=== PATIENT | female | born 1975 | race Caucasian/White ===

== ENCOUNTER 2018-03-11 08:44 | Day surgery (SDC) | payer BC ==
[~2018-03-11 08:44] MED LIST: LAMO100 PO; LEVOXYL; NORCO
== END 2018-03-11 23:07 | disposition home or self-care (01) ==
LOC: RAD 08:44
PROVIDERS: Radiology Diagnostic Radiology
PROC: B02BYZZ Computerized Tomography (CT Scan) of Spinal Cord using Other Contrast (ICD-10-PCS; principal; 2018-03-11 10:30)
DX: M50.31 Other cervical disc degeneration, high cervical region (principal); M12.88 Other specific arthropathies, not elsewhere classified, other specified site
CPT/HCPCS: 62302; 72126; Q9967

== ENCOUNTER → 2018-10-13 | Outpatient (CLI) | payer BC, SELFPAY | END | disposition home or self-care (01) | LOC: LAB SHORT 10:17 → LAB 10:17 | DX: Z51.81 Encounter for therapeutic drug level monitoring (principal); M54.2 Cervicalgia; Z79.899 Other long term (current) drug therapy | CPT/HCPCS: G0480 ==

== ENCOUNTER 2018-11-27 18:22 | Emergency (ER) | payer BC ==
[~2018-11-27] VITALS: Ht 152.4 cm; Wt 68.0 kg
[2018-11-27] MEDS ORDERED: AMPDEX30CR PO (18:40)
[2018-11-27] MEDS ORDERED: LEVSOD88 PO (18:40)
[2018-11-27] MEDS ORDERED: Norco 5-325 Ta1 EACH PO (19:55)
== END 2018-11-27 20:09 | disposition home or self-care (01) ==
LOC: ER 18:22
DX: M25.521 Pain in right elbow (principal); Z88.8 Allergy status to other drugs, medicaments and biological substances; Z79.899 Other long term (current) drug therapy
CPT/HCPCS: 29105; 73080; 73090; 99283-25

== ENCOUNTER 2018-12-16 12:00 | Day surgery (SDC) | payer BC, OTHER ==
[~2018-12-16] VITALS: Ht 152.4 cm; Wt 72.0 kg
[~2018-12-16 12:00] MED LIST changes: +AMPDEX30CR PO; +LEVSOD88 PO; +Norco 5-325 Ta1 EACH PO
[2018-12-16] MEDS ORDERED: Synthroid88 MCG PO (12:14)
[2018-12-16] MEDS ORDERED: DAILY MULTIPLE1 EACH PO (12:14)
[2018-12-16] MEDS ORDERED: CRINONE1.125 GM TD (12:16)
[2018-12-16] MEDS ORDERED: CYCL10 PO (12:17)
[2018-12-16] MEDS ORDERED: Percocet 7.5-31 EACH PO (12:17)
[2018-12-16] MEDS ORDERED: ALBU90OI INH (12:18)
[2018-12-16] MEDS ORDERED: Advair Hfa 230-12 GM INH (12:18)
[2018-12-16] MEDS ORDERED: NASAL DECONGEST30 MG PO (12:19)
[2018-12-16 12:41] LABS: Hematocrit 39.9 % (33.0-51.0); Hemoglobin 13.8 g/dL (11.5-16.0); Mean Corpuscular HGB 33.6 pg (26.0-34.0); Mean Corpuscular HGB Conc 34.6 g/dL (31.5-36.5); Mean Corpuscular Volume 97 fL (80-100); Mean Platelet Volume 10.1 fL (9.1-12.4); Platelet Count 278 K/mm3 (150-400); RDW Coefficient Variation 11.9 % (11.7-14.2); RDW Standard Deviation 42.4 fL (35.1-46.3); Red Blood Cell Count 4.11 M/mm3 (3.80-5.20); White Blood Cell Count 7.29 K/mm3 (4.00-11.30)
[2018-12-16 13:04] LABS: International Normalized Ratio 0.97; Prothrombin Time Results 10.3 Sec (9.7-11.5)
[2018-12-16 13:05] LABS: Alanine Aminotransfer (ALT/SGP 22 U/L (12-78); Albumin, Blood 3.6 g/dL (3.4-5.0); Albumin/Globulin Ratio 1.1 (0.8-1.8); Alk Phos 126 U/L (50-136); Anion Gap 5 mmol/L (6-16); Aspartate Aminotrans (AST/SGOT 22 U/L (12-37); Bilirubin, Total 0.7 mg/dL (0.1-1.0); Blood Urea Nitrogen 7 mg/dL (8-24); Bun/Creatinine Ratio 11.8 (12.0-20.0); CO2, Blood 27 mmol/L (21-32); Calcium, Blood 8.2 mg/dL (8.5-10.1); Chloride, Blood 108 mmol/L (98-108); Creatinine, Blood 0.59 mg/dL (0.40-1.00); Globulin, Blood 3.3 g/dL (2.2-4.0); Glomerular Filtration Rate >60 (60-); Glucose, Blood 105 mg/dL (70-99); Potassium, Blood 3.4 mmol/L (3.5-5.5); Sodium, Blood 140 mmol/L (136-145); Total Protein, Blood 6.9 g/dL (6.4-8.2)
--- NOTE | 2018-12-16 15:52 | NUR ---
PT SCRIPT ONLY AVAILABLE [facility]RU [facility], SENT WRITTED SCRIPT W PT ON DC. IV DC'T TIP INTACT, PT DRESSED, AMB WELL, DC'D AMBULATION W THIS RN TO PT ENTRANCE WTIH SIGNIFICANT OTHER DRIVING PT HOME. ESR AND [facility] LABS DRAWN BEFORE DC, PENDING
== END 2018-12-16 15:45 | disposition home or self-care (01) ==
LOC: MHTC 12:00
PROVIDERS: Radiology Diagnostic Radiology
PROC: 037Y3ZZ Dilation of Upper Artery, Percutaneous Approach (ICD-10-PCS; principal; 2018-12-16)
PROC: B31H1ZZ Fluoroscopy of Right Upper Extremity Arteries using Low Osmolar Contrast (ICD-10-PCS; principal; 2018-12-16)
DX: I99.8 Other disorder of circulatory system (principal); T14.90XA Injury, unspecified, initial encounter; W10.9XXA Fall (on) (from) unspecified stairs and steps, initial encounter; E07.9 Disorder of thyroid, unspecified; Z88.6 Allergy status to analgesic agent; Z79.899 Other long term (current) drug therapy
CPT/HCPCS: 36216; 75710; 75774; 80053; 85027; 85610; 85651; 86038; 99152; 99153; C1760; C1769; C1894; J1644; J2250; J3010; J7030; Q9967

== ENCOUNTER 2021-12-09 09:04 | Day surgery (SDC) | payer BC ==
[~2021-12-09] VITALS: Ht 154.9 cm; Wt 75.1 kg
[~2021-12-09 09:04] MED LIST changes: +ALBU90OI INH; +Advair Hfa 230-12 GM INH; +CRINONE1.125 GM TD; +CYCL10 PO; +DAILY MULTIPLE1 EACH PO; +NASAL DECONGEST30 MG PO; +Percocet 7.5-31 EACH PO; +Synthroid88 MCG PO
[2021-12-09] MEDS ORDERED: Nifedipine5 GM PO (09:24)
--- NOTE | 2021-12-09 09:50 | NUR ---
Ambulatory in Day Surgery. History, Chart, Medications and Allergies reviewed before start of procedure.Lungs clear T/O to Auscultation. Patient confirms NPO status and agrees with scheduled surgery. Pre-Op teaching done. Pt verbalizes understanding. Patient States Post-Procedure ride home has been arranged.
--- NOTE | 2021-12-09 15:03 | NUR ---
PATIENT TO FLOOR FROM PACU AT 1345. AWAKE, ALERT AND ORIENTED X 4. C/O 08/04 PAIN, ABDOMEN. DILAUDID 0.2MG IV GIVEN, PT. DENIES RELIEF. SCHEDULED TYLENOL GIVEN AND PT. AT THIS TIME CONT. TO C/O ABDOMINAL PAIN 07/05. ROXICODONE GIVEN PER ORDERS AND REGLAN IV TO PREVENT NAUSEA. MEDS TAKEN WITH WATER AND PT. DENIES NAUSEA. VSS, SKIN W/D. INSTRUCTED TO USE CALL LIGHT FOR ANY NEEDS, COMPLAINTS, CONCERNS. CALL LIGHT IN REACH. PATIENT IS ON ROOM AIR. STERI STRIPS ON ABDOMEN CLEAN, DRY AND INTACT. JAVIER PAD CLEAN AND DRY.
--- NOTE | 2021-12-09 18:07 | NUR ---
HOPPER CATHETER DC'D AT THIS TIME. CLEAR YELLOW URINE NOTED. PT TOLERATED WELL. WILL MONITOR FOR RETENTION WITH BS.
--- NOTE | 2021-12-09 18:20 | NUR ---
ASSUMED CARE OF PATIENT AT 1730. MEDICATED FOR PAIN AND NAUSEA. HOPPER CATHETER DC'D. PATIENT TOLERATED WELL. TOLERATING WATER.
--- NOTE | 2021-12-10 06:39 | NUR ---
SHIFT SUMMARY: PT IN BED AAOX4.VS WNL WITH NO SIGNS OF DISTRESS NOTED. LAP SITES ON ABOMEN C/D/I WITH NO DRAINAGE NOTED. IV SALINE LOCK IN PLACE PATENT. PT COMPLAINED ON PAIN MEDICATED PER EMAR. TOLERATED WELL. UP TO BATHROOM WITH WALKER SEVERAL TIMES. WILL CONTINUE TO MONITOR AND MAINTAIN ALL PRECAUTIONS.
--- NOTE | 2021-12-10 10:21 | NUR ---
PT. DISCHARGED AT 1020. DC INSTRUCTION EXPLAINED AND COPY GIVEN ALONG WITH PRESCRIPTION. PATIENT VERBALIZE UNDERSTANDING OF DC INSTRUCTIONS. FRIEND HERE TO TAKE PT. HOME, W/C TO EXIT. STERI STRIPS ON ABDOMEN CLEAN AND DRY. PATIENT STATES PAIN IS WELL CONTROLLED WITH ROXICODONE.
--- NOTE | 2021-12-13 10:17 | NUR ---
12/13/21 1017 Alyssa Cooper VERIFICATIONS: EDIT CHART.
== END 2021-12-10 10:30 | disposition home or self-care (01) ==
LOC: ORSCMMR 09:04 → ORD 10:45 → SURS 13:47 → ORSCMMR 12-10 10:30
PROVIDERS: Obstetrics & Gynecology
PROC: 0UT7FZZ Resection of Bilateral Fallopian Tubes, Via Natural or Artificial Opening With Percutaneous Endoscopic Assistance (ICD-10-PCS; principal; 2021-12-09 10:45)
PROC: 0UT9FZZ Resection of Uterus, Via Natural or Artificial Opening With Percutaneous Endoscopic Assistance (ICD-10-PCS; principal; 2021-12-09 10:45)
DX: R10.2 Pelvic and perineal pain (principal); N94.6 Dysmenorrhea, unspecified; N84.0 Polyp of corpus uteri; D25.9 Leiomyoma of uterus, unspecified; N73.6 Female pelvic peritoneal adhesions (postinfective); N92.0 Excessive and frequent menstruation with regular cycle; Z79.899 Other long term (current) drug therapy
CPT/HCPCS: 88307; A9270; J0171; J0690; J1100; J1170; J2250; J2405; J2704; J2710; J2765; J3010; J7120

== ENCOUNTER 2024-12-21 07:36 | Day surgery (SDC) | payer OTHER ==
[2024-12-21] VITALS (15 sets, daily range): BP systolic 85–146; BP diastolic 67–87
[~2024-12-21] VITALS: Ht 152.4 cm; Wt 67.8 kg
[~2024-12-21 07:36] MED LIST changes: +Lactated Ringer's 1,000 ML IV SCH; +Nifedipine5 GM PO; +propofoL 40 ML IV ONE
--- NOTE | 2024-12-21 07:58 | NUR ---
Ambulatory in Day Surgery. History, Chart, Medications and Allergies reviewed before start of procedure. Lungs clear T/O to Auscultation. Patient confirms NPO status and agrees with scheduled surgery. Pre-Op teaching done. Pt verbalizes understanding. Patient States Post-Procedure ride home has been arranged.
[2024-12-21] MEDS ORDERED: Midazolam HCl 1MG / ML 2ML Vial ONE (08:21)
--- NOTE | 2024-12-21 08:25 | NUR ---
12/21/24 0874 Cheryl Alejandro CONFIRMED AND REVIEWED H&P, MEDCICATIONS, ALLERGIES, MEDICAL HISTORY, RESPIRATORY HISTORY, VITAL SIGNS, 3-LEAD EKG, CONSENTS, AND PHYSICIAN ORDERS. PATIENT CONFIRMS NPO STATUS AND AGREES WITH SCHEDULED PROCEDURE. MONITOR INTACT WITH CONTINUOUS PULSE OXIMETRY, CAPNOGRAPHY, 3-LEAD EKG, INTERMITTENT BP. SUPPLEMENTAL O2 TO BE TITRATED THROUGHOUT PROCEDURE TO MAINTAIN O2 SATURATION ABOVE 90%. PATIENT DETERMINED TO BE ASA APPROPRIATE FOR PROPOFOL SEDATION PRIOR TO START OF PROCEDURE BY DR. CARRINGTON MALLAMPATI CLASS 2 AIRWAY: COMPLETE VISUALIZATION OF THE UVULA.
--- NOTE | 2024-12-21 09:12 | NUR ---
Discharge instructions reviewed with patient. Patient verbalizes understanding. Copy given to patient to take home. Patient States Post-Procedure ride home has been arranged. Discharged via wheelchair to private car for ride home.
== END 2024-12-21 09:13 | disposition home or self-care (01) ==
LOC: ORSCMMR 07:36 → ORD 08:30 → ORSCMMR 08:30
PROVIDERS: Internal Medicine Gastroenterology
PROC: 0DBN8ZX Excision of Sigmoid Colon, Via Natural or Artificial Opening Endoscopic, Diagnostic (ICD-10-PCS; principal; 2024-12-21 08:30)
DX: Z12.11 Encounter for screening for malignant neoplasm of colon (principal); K63.5 Polyp of colon; K55.20 Angiodysplasia of colon without hemorrhage; J45.909 Unspecified asthma, uncomplicated; I73.00 Raynaud's syndrome without gangrene; F90.9 Attention-deficit hyperactivity disorder, unspecified type; E03.9 Hypothyroidism, unspecified; Z79.899 Other long term (current) drug therapy
CPT/HCPCS: 88305; J2250; J2704; J7120